=== PATIENT | male | born 1995 | race Two or more races ===

== ENCOUNTER 2020-02-05 15:55 | Emergency (ER) | payer OTHER ==
[2020-02-05 16:15] VITALS: BP 124/70; PULSE 72; TEMP 99; BMI 17.4
== END 2020-02-05 16:25 | disposition home or self-care (01) ==
LOC: FER 15:55
DX: R05 Cough (principal)
CPT/HCPCS: 99283-25; C9803; U0003

== ENCOUNTER 2020-09-27 19:18 | Emergency (ER) | payer OTHER ==
[2020-09-27 19:43] VITALS: BP 123/86; PULSE 82; TEMP 98.9; BMI 17.9
== END 2020-09-27 21:00 | disposition home or self-care (01) ==
LOC: FER 19:18
DX: R55 Syncope and collapse (principal)
CPT/HCPCS: 93005; 99283-25